=== PATIENT | female | born 1945 | race Caucasian/White ===

== ENCOUNTER → 2019-03-07 | Outpatient (CLI) | payer MEDICARE ==
--- NOTE | 2019-03-07 15:39 | US ---
EXAMINATION TYPE: US transvaginal DATE OF EXAM: 03/07/2019 COMPARISON: CT 03/31/2012, US 02/17/2012 CLINICAL HISTORY: R14.0 Abd bloating. Hx of breast cancer 15 years ago TECHNIQUE: . Transvaginal sonographic images of the pelvis were acquired. Date of LMP: 20 years ago EXAM MEASUREMENTS: Uterus: 4.9 x 2.6 x 3.0 cm Endometrial Stripe: 0.6 cm Right Ovary: 3.0 x 1.7 x 1.9 cm Left Ovary: 1.5 x 0.7 x 0.9 cm. 1. Uterus: Anteverted Heterogeneous with calcifications 2. Endometrium: Thickened 3. Right Ovary: Hypoechoic, heterogeneous area visualized in the right adnexa, probably right ovary. Calcification visualized measuring 0.6 cm 4. Left Ovary: Small calcification visualized 5. Bilateral Adnexa: See above 6. Posterior cul-de-sac: wnl IMPRESSION: Atrophic ovaries and uterus
== END | disposition home or self-care (01) ==
LOC: RADUSWWP 14:11
PROVIDERS: ATTEND Family Medicine
DX: N83.312 Acquired atrophy of left ovary (principal); N83.311 Acquired atrophy of right ovary; N85.8 Other specified noninflammatory disorders of uterus
CPT/HCPCS: 76830